=== PATIENT | female | born 1940 | race Caucasian/White ===

== ENCOUNTER 2019-01-06 15:20 | Emergency (ER) | payer MEDICARE ==
[~2019-01-06] VITALS: Ht 158.8 cm; Wt 86.4 kg
[~2019-01-06 15:20] MED LIST: BAYER CHEWABLE81 MG PO; COUMADIN2.5 MG PO; DILAUDID2 MG PO; DIOVAN80 MG PO; LOW DOSE ASPIRI81 M1 PO; NEXIUM40 MG PO; PERCOCET 10/3251 TA1 PO; RYTHMOL SR225 MG PO; RYTHMOL SR325 MG PO; RYTHMOL225 MG PO; TENORMIN25 MG PO; VALIUM 2 MG TAB2 MG PO; VITAMIN D31000 UNIT PO
[2019-01-06 15:27] VITALS: Ht 158.8 cm; Wt 86.4 kg
[2019-01-06] MEDS ORDERED: GLUCOPHAGE500 MG PO (15:32)
[2019-01-06] MEDS ORDERED: LORSARTIN (15:35)
[2019-01-06 16:24] LABS: BASOPHILS 0.7 % (0-2); EOSINOPHILS 2.4 % (0-7); HEMATOCRIT 38.6 % (36.0-48.0); HEMOGLOBIN 12.5 g/dL (12-16); IMMATURE GRANULOCYTES 0.3 % (0-5); LYMPHOCYTES 28.6 % (15-50); MCH 30.4 pg (26.0-34.0); MCHC 32.4 g/dL (31.0-37.0); MCV 93.9 fL (80.0-100.0); MEAN PLATELET VOLUME 10.6 fL (7.4-10.4); MONOCYTES 9.3 % (2-11); NEUTROPHILS 58.7 % (40-80); RBC 4.11 10x6/uL (4.00-5.40); RDW 14.2 % (11.5-14.5); WBC 7.4 10x3/uL (4.8-10.8)
[2019-01-06 16:34] LABS: APTT 33.1 SECONDS (22.8-39.4); INR 1.85 (0.85-1.17); PROTIME 20.7 SECONDS (11.6-15.0)
[2019-01-06 16:44] LABS: ALBUMIN 3.4 g/dL (3.4-5.0); ALKALINE PHOSPHATASE 96 U/L (46-116); ALT (SGPT) 20 U/L (10-68); BILIRUBIN - TOTAL 0.35 mg/dL (0.2-1.3); CALC OSMOLALITY 280 mosm/kg (275-300); CALCIUM 9.3 mg/dL (8.5-10.1); CARBON DIOXIDE 27.4 mmol/L (21.0-32.0); CHLORIDE - SERUM 103 mmol/L (98-107); CREATININE - SERUM 0.9 mg/dL (0.6-1.3); GLUCOSE 116 mg/dL (74-106); POTASSIUM - SERUM 4.3 mmol/L (3.5-5.1); PROTEIN - SERUM 6.7 g/dL (6.4-8.2); SODIUM 140 mmol/L (136-145); UREA NITROGEN 15 mg/dL (7-18); eGFR NON AFRICAN AMERICAN 64 mL/min (90-120)
[2019-01-06 16:55] LABS: PLATELET COUNT 264 10x3/uL (130-400)
[2019-01-06 17:02] LABS: CKMB 1.4 U/L (0.0-3.6); CREATINE KINASE 54 UL (21-215); MAGNESIUM - SERUM 1.6 mg/dL (1.8-2.4)
[2019-01-06 17:10] LABS: TROPONIN-I < 0.017 ng/mL (0.000-0.060)
[2019-01-06 19:01] VITALS: BP 156/76
== END 2019-01-06 18:40 | disposition home or self-care (01) ==
LOC: D.ER 15:20
PROVIDERS: Family Medicine
DX: I48.2 Chronic atrial fibrillation (principal); Z79.01 Long term (current) use of anticoagulants